=== PATIENT | female | born 1980 | race Caucasian/White ===

== ENCOUNTER → 2023-08-25 17:30 | Outpatient (REF) | payer OTHER, SELFPAY | LOC: CLAB 17:30 | PROVIDERS: ATTENDING PHYSICIAN Otolaryngology | DX: J34.3 Hypertrophy of nasal turbinates (principal); J34.89 Other specified disorders of nose and nasal sinuses | CPT/HCPCS: 88304; 88311 ==

== ENCOUNTER → 2023-10-25 10:02 | Outpatient (REF) | payer OTHER, SELFPAY | LOC: HWWDC 10:02 | PROVIDERS: ATTENDING PHYSICIAN Advanced Practice Midwife; FAMILY PHYSICIAN Family Medicine | DX: Z12.31 Encounter for screening mammogram for malignant neoplasm of breast (principal) | CPT/HCPCS: 77063; 77067 ==

== ENCOUNTER → 2023-11-03 08:38 | Outpatient (REF) | payer OTHER, SELFPAY | LOC: WDC 08:38 | PROVIDERS: ATTENDING PHYSICIAN Advanced Practice Midwife; FAMILY PHYSICIAN Family Medicine | DX: R92.8 Other abnormal and inconclusive findings on diagnostic imaging of breast (principal) | CPT/HCPCS: 76642 ==

== ENCOUNTER 2024-05-22 14:00 | Outpatient (RCR) | payer OTHER, SELFPAY | END 2024-05-22 23:59 | disposition home or self-care (01) | LOC: RPT 14:00 | PROVIDERS: ATTENDING PHYSICIAN Advanced Practice Midwife; FAMILY PHYSICIAN Family Medicine | DX: N81.89 Other female genital prolapse (principal); Z73.6 Limitation of activities due to disability; K59.00 Constipation, unspecified; M54.9 Dorsalgia, unspecified | CPT/HCPCS: 97110; 97112; 97140; 97162; 97530 ==

== ENCOUNTER 2024-06-26 13:50 | Outpatient (RCR) | payer OTHER, SELFPAY | END 2024-06-26 23:59 | disposition home or self-care (01) | LOC: RPT 13:50 | PROVIDERS: ATTENDING PHYSICIAN Advanced Practice Midwife; FAMILY PHYSICIAN Family Medicine | DX: N81.89 Other female genital prolapse (principal); Z73.6 Limitation of activities due to disability; K59.00 Constipation, unspecified; M54.9 Dorsalgia, unspecified | CPT/HCPCS: 97014; 97110; 97112; 97140; 97530 ==

== ENCOUNTER 2024-07-17 12:07 | Outpatient (RCR) | payer OTHER, SELFPAY | END 2024-07-17 23:59 | disposition home or self-care (01) | LOC: RPT 12:07 | PROVIDERS: ATTENDING PHYSICIAN Advanced Practice Midwife; FAMILY PHYSICIAN Family Medicine | DX: N81.89 Other female genital prolapse (principal); K59.00 Constipation, unspecified; M54.9 Dorsalgia, unspecified; Z73.6 Limitation of activities due to disability | CPT/HCPCS: 97014; 97110; 97112; 97140; 97530 ==

== ENCOUNTER 2024-08-14 19:00 | Outpatient (RCR) | payer OTHER, SELFPAY | END 2024-08-14 23:59 | disposition home or self-care (01) | LOC: RPT 19:00 | PROVIDERS: ATTENDING PHYSICIAN Advanced Practice Midwife; FAMILY PHYSICIAN Family Medicine | DX: N81.89 Other female genital prolapse (principal); K59.00 Constipation, unspecified; M54.9 Dorsalgia, unspecified; Z73.6 Limitation of activities due to disability | CPT/HCPCS: 97014; 97112; 97140; 97530 ==

== ENCOUNTER → 2024-09-04 12:57 | Outpatient (REF) | payer OTHER, SELFPAY | LOC: WDC 12:57 | PROVIDERS: ATTENDING PHYSICIAN Surgery | DX: R92.2 Inconclusive mammogram (principal); Z84.89 Family history of other specified conditions | CPT/HCPCS: 76641 ==

== ENCOUNTER 2024-09-11 14:08 | Outpatient (RCR) | payer OTHER, SELFPAY | END 2024-09-11 23:59 | disposition home or self-care (01) | LOC: RPT 14:08 | PROVIDERS: ATTENDING PHYSICIAN Advanced Practice Midwife; FAMILY PHYSICIAN Family Medicine | DX: N81.89 Other female genital prolapse (principal); K59.00 Constipation, unspecified; M54.9 Dorsalgia, unspecified; Z73.6 Limitation of activities due to disability | CPT/HCPCS: 97112; 97530 ==

== ENCOUNTER 2024-12-12 09:15 | Emergency (ER) | payer OTHER, SELFPAY ==
[2024-12-12 09:22] VITALS: BP 102/77
[2024-12-12 09:42] LABS: Hematocrit 34.9 % (37.0-47.0); Hemoglobin 12.1 g/dL (12.0-16.0); Mean Corp Hgb Conc. 34.7 g/dL (33.0-37.0); Mean Corpuscular Volume 91.8 fL (81.0-99.0); Nucleated Red Blood Cells % 0 %; Platelet Count 236 10^3/uL (130-400); Red Cell Dist. Width 12.0 % (11.5-14.5)
[2024-12-12 09:58] LABS: ALT (SGPT) 21 U/L (0-35); AST (SGOT) 25 U/L (14-36); Albumin 4.7 g/dl (3.5-5.0); Alkaline Phosphatase 42 U/L (38-126); Blood Urea Nitrogen 14 mg/dl (7-17); Calcium 9.7 mg/dl (8.4-10.2); Carbon Dioxide 25 mmol/L (22-30); Chloride 109 mmol/L (98-107); Glucose 58 mg/dl (70-99); Potassium 4.1 mmol/L (3.5-5.1); Sodium 140 mmol/L (135-145); Total Protein 7.5 g/dl (6.3-8.2); eGFR > 60.00
[2024-12-12 10:03] LABS: HCG, Serum Qualitative Screen Negative
[2024-12-12 10:06] LABS: Troponin I < 0.012 ng/ml
[2024-12-12 11:01] VITALS: BMI 21.6
[2024-12-12 11:04] VITALS: BP 106/73
--- NOTE | 2024-12-12 11:29 | ED.GENMED ---
History of Present Illness
General
Chief Complaint: Chest Pain
Source: patient
Exam Limitations: none
Time Seen by Provider: 12/12/24 10:51
Nursing documentation reviewed up to this point in time: agreed with
History of Present Illness
History of Present Illness:
SEE mdm
Past History
Past History
ED Past Medical History: None
ED Past Surgical History: None
Social History
Tobacco: Non-smoker
Phy Exam
Physical Exam
Physical Exam:
GENERAL: Alert , in no apparent distress
EYE: pupils equal and reactive
NECK: Supple
ENT: o/p clr, mmm.
CARDIAC: Regular rate and rhythm .
chest wall: slightly tender sternal regionpelrutic pain without splinting; can take full deep breath; does not look uncomfortable
LUNGS: Clear breath sounds bilaterally, no acute respiratory distress, no wheezes/rales/rhonchi
ABDOMEN: Soft, without focal tenderness, no r/g, no cvat, normal bowel sounds
NEUROLOGICAL: Alert and oriented, no focal neuro deficits
SKIN: Warm and dry, skin intact.
MUSCULOSKELETAL: No edema, well perfused. neg isabel's sign
PSYCH: Normal and appropriate interaction.
Scores
Heart Score for Chest Pain Patients
STEMI patient?: No
History: Slightly or Non-Suspicious
ECG: Nonspecific Repolarization
Age: </= 45 years
Risk Factors: No Risk Factors
Troponin: </= Normal Limit
Heart Score for Chest Pain Patients: 1
Heart Score Risk: 2.5% MACE over next 6 weeks
Course
Orders/Labs/Results
Orders:
Orders
12/12/24 09:16
EKG [Electrocardiogram (*1)] Urgent
Reason for Study: Chest Pain
12/12/24 09:17
EKG- Treatment ONCE
12/12/24 09:25
Test Result ONCE
12/12/24 09:31
Complete Blood Count/With Diff Urgent
Comprehensive Metabolic Panel Urgent
HCG, Serum Qualitative Screen Urgent
Comment: Notify provider if positive test present
Troponin I Urgent
12/12/24 12:08
D-Dimer Urgent
12/12/24 12:30
Electrocardiogram (*1) Urgent
Reason for Study: Chest Pain
12/12/24 12:33
Troponin I Urgent
12/12/24 12:56
Ketorolac [Toradol] 30 mg IV NOW STA
CR Chest - 2 Views Urgent
Comment:
Reason For Exam: pleuritic cp
Abnormal Lab Results
12/12/24
09:31
RBC 3.80 L 10^6/uL
(4.20-5.40)
Hct 34.9 L %
(37.0-47.0)
MCH 31.8 H pg
(27.0-31.0)
Chloride 109 H mmol/L
(98-107)
Glucose 58 L mg/dl
(70-99)
12/12/24 09:31
12/12/24 09:31
Vital Signs
Initial and Last Documented VS:
Initial Vital Signs
Temp Pulse Resp BP Pulse Ox
36.9 C 83 18 102/77 100
12/12/24 09:22 12/12/24 09:22 12/12/24 09:22 12/12/24 09:22 12/12/24 09:22
Last Documented Vital Signs
Temp Pulse Resp BP Pulse Ox
36.9 C 64 9 113/82 98
12/12/24 09:22 12/12/24 13:51 12/12/24 13:51 12/12/24 13:51 12/12/24 13:51
MDM/Problems Addressed
Differential Diagnosis Includes:
see MDM
MDM/Problems Addressed:
Note:
CHIEF COMPLAINT(S)
Heart palpitations and chest pain on deep breathing.
HISTORY OF PRESENT ILLNESS
The patient is a 44 y/o female presenting with episodes of heart palpitations over the past few weeks, noting a sensation of fluttering. These episodes are exacerbated when lying down at night. The patient attributes the symptoms to possible
perimenopause. She consulted her primary care physician last week, who scheduled tests including a Holter monitor for 48 hours, a stress test, blood work, and an echocardiogram. The patient reported waking up this morning with pleuritic chest pain
upon taking a deep breath. The pain was noted immediately upon waking. Additionally, she reports overall fatigue over the last month, sometimes requiring naps, which she indicates is a change from her usual routine. The patient denies shortness of
breath outside of the noted pain on deep breathing. She denies any hormone therapy other than topical vaginal estrogen cream and uses a Mirena IUD for contraception. There is no history of blood clots, recent surgeries, or prolonged travel. She
denies cough, chills, or sputum production. She states no significant change in symptoms with physical activity.
PAST MEDICAL AND SURIGICAL HISTORY
Noted current use of vaginal estrogen cream and Mirena IUD.
FAMILY HISTORY
No family history of heart attacks in immediate family members (parents or siblings).
MEDICATIONS
Vaginal estrogen cream, Mirena IUD.
REVIEW OF SYSTEMS
- Cardiovascular: Episodes of heart palpitations described as fluttering, no documented tachycardia, right bundle branch block noted on prior EKG.
- Respiratory: Chest pain upon deep breathing, denies cough or sputum production.
- General: Fatigue over the last month.
SOCIAL HISTORY
Denies smoking or illicit drug use. Consumes alcohol socially, approximately two to three drinks per week.
PHYSICAL EXAM
- Cardiovascular: EKG showing right bundle branch block, no acute changes indicative of myocardial infarction.
- Respiratory: Chest pain on deep breathing.
Nursing notes reviewed and vital signs reviewed.
PROBLEM LIST
Acute:
- Pleuritic chest pain
- Heart palpitations
- Fatigue
PLAN
1. Perform a D-dimer test to evaluate for potential blood clot. If positive, proceed with a computed tomography scan of the chest with contrast to rule out pulmonary embolism.
2. Order a repeat troponin test three hours after the initial test to monitor for acute coronary syndrome.
3. If the D-dimer test is negative, consider obtaining a chest X-ray to assess the lungs, heart size, and any potential fluid accumulation, contingent upon D-dimer results.
DIFFERENTIAL DIAGNOSIS
The Differential Diagnosis includes, in no particular order and is not limited to:
1. Pulmonary embolism
2. Acute coronary syndrome
3. Atrial fibrillation or other cardiac arrhythmias
4. Pericarditis
5. Myopericarditis
6. Gastroesophageal reflux disease
7. Costochondritis
8. Anxiety or panic disorder
9. Paramenopausal syndrome
10. Musculoskeletal strain
44-year-old female presents with intermittent palpitations felt as irregular beats over the last couple weeks. She says they were happening more frequently so last week she saw her family doctor who ordered outpatient echo, Holter monitor, stress
test and some labs. Patient has not had any of that done yet but she woke up this morning and had pleuritic discomfort in her substernal region. She is not having any exertional chest pain or shortness of breath. She is not coughing. She has a
Mirena but no exogenous estrogen use.
On exam she is well-appearing, does not look to be in any distress. She is not tachycardic, he rhythm is regular, her EKG is normal sinus rhythm without any ectopy, she does have a incomplete right bundle branch block. There is no ST segment
changes or signs of ischemia. Patient's labs are reassuring with a normal white count, negative D-dimer, first troponin was negative. Her symptoms began around 6 AM when she woke up. She will have another troponin at 1230 which would be 3 hours
from the first troponin. I will order a chest x-ray. If all is unremarkable, she will be discharged home for outpatient follow-up.
pt informed of low blood sguar, she will ea tnow
*Pulse Oximetry
SaO2: 100
Oxygen Mode of Delivery: Room air
Patient hypoxic: no (100)
*Critical Care Note
Total Time (30-74mins, 75-104mins- exclusive of procedures): Not Applicable
ED Attending Note
-
Portions of this chart may have been created with voice recognition software.� Occasional wrong word or��sound alike� substitutions may have occurred due to the inherent limitations of voice recognition software.
Discharge Plan
Departure
Patient Disposition: Home (Routine Discharge)
Date of Disposition: 12/12/24
Time of Disposition: 13:40
Patient with high blood pressure during this ER visit?: No
Condition: Fair
Covid-19: Not Applicable
Discharge Problem:
Pleuritic chest pain, Palpitations
Instructions: Chest Pain That Is Not Caused by the Heart (DC), Palpitations - ED (DC)
Prescriptions:
No Action
multivitamin [Daily Multiple] 1 EACH tablet
1 ea PO DAILY
Referrals:
Deysi Castellon MD [Family Provider, Family Practice] - Follow up in 2-3 days
Activity Restrictions/Additional Instructions:
Not sure the cause of your symptoms however your screening evaluation is reassuring with 2 negative troponin enzymes and no EKG changes associated with coronary disease, you also had a negative D-dimer ruling out a blood clot. Your chest x-ray was
clear. You should still follow-up with your family doctor's testing with the echo and stress test etc. Drink plenty of fluids. Avoid caffeine and any stimulant medications, alcohol etc. Return for any worsening symptoms like severe palpitations,
elevated heart rate with passing out or lightheadedness, significant chest pain, shortness of breath or any concern
Interventions
Interventions:
*Risk Screen - Suicide Last Done: 12/12/24 09:22
*General Assessment Last Done: 12/12/24 11:01
*Neglect/Abuse Screening Last Done: 12/12/24 11:01
*ED- Fall Risk Assessment Last Done: 12/12/24 11:01
*ED COVID-19 Vaccine History Last Done: 12/12/24 11:01
*Nursing Disposition Last Done: 12/12/24 14:20
ED- Cardiac Assessment Last Done: 12/12/24 11:02
Discharge Date and Time
Discharge Date/Time: 12/12/24 14:20
Print Language: AZERI
[2024-12-12 12:00] VITALS: BP 114/68
[2024-12-12 12:40] LABS: D-Dimer 0.32 ug/mlFEU (0.00-0.50)
[2024-12-12 13:00] VITALS: BP 113/64
[2024-12-12 13:10] LABS: Troponin I < 0.012 ng/ml
[2024-12-12] MEDS: TORADOL 30 MG IV (13:10)
[2024-12-12 13:51] VITALS: BP 113/82
== END 2024-12-12 14:20 | disposition home or self-care (01) ==
LOC: EMR 09:15
PROVIDERS: Physician Assistant; EMERGENCY PHYSICIAN Emergency Medicine; FAMILY PHYSICIAN Family Medicine
DX: R07.81 Pleurodynia (principal); R00.2 Palpitations; I45.10 Unspecified right bundle-branch block
CPT/HCPCS: 99285; 96374; 71046; 80053; 84484; 84703; 85025; 85379; 93005

== ENCOUNTER → 2024-12-30 10:49 | Outpatient (REF) | payer OTHER, SELFPAY | LOC: RCS 10:49 | PROVIDERS: ATTENDING PHYSICIAN Nurse Practitioner Family | DX: R00.2 Palpitations (principal) | CPT/HCPCS: 93306 ==

== ENCOUNTER → 2025-01-08 07:44 | Outpatient (REF) | payer OTHER, SELFPAY | LOC: RCS 07:44 | PROVIDERS: ATTENDING PHYSICIAN Nurse Practitioner Family | DX: R00.2 Palpitations (principal) | CPT/HCPCS: 93017 ==

== ENCOUNTER → 2025-01-20 10:42 | Outpatient (REF) | payer OTHER, SELFPAY | LOC: RCS 10:42 | PROVIDERS: ATTENDING PHYSICIAN Nurse Practitioner Family | DX: R00.2 Palpitations (principal) | CPT/HCPCS: 93225; 93226 ==

== ENCOUNTER → 2025-02-05 12:14 | Outpatient (REF) | payer OTHER, SELFPAY | LOC: WDC 12:14 | PROVIDERS: ATTENDING PHYSICIAN Advanced Practice Midwife; FAMILY PHYSICIAN Family Medicine | DX: Z12.31 Encounter for screening mammogram for malignant neoplasm of breast (principal) | CPT/HCPCS: 77063; 77067 ==

== ENCOUNTER → 2025-02-19 09:35 | Outpatient (REF) | payer OTHER, SELFPAY | LOC: WDC 09:35 | PROVIDERS: ATTENDING PHYSICIAN Advanced Practice Midwife; FAMILY PHYSICIAN Family Medicine | DX: R92.8 Other abnormal and inconclusive findings on diagnostic imaging of breast (principal) | CPT/HCPCS: 76642 ==